=== PATIENT | male | born 1995 | race Caucasian/White ===

== ENCOUNTER 2020-12-30 01:27 | Emergency (ER) | payer OTHER, SELFPAY ==
[2020-12-30] MEDS ORDERED: Lidocaine 1% (PF) 30 ML VIAL ONE ×3 (02:31→02:53)
[2020-12-30] MEDS ORDERED: Boostrix 0.5 ML (Tdap) VIAL ONE (02:53)
== END 2020-12-30 04:17 | disposition home or self-care (01) ==
LOC: ERS 01:27
DX: S41.112A Laceration without foreign body of left upper arm, initial encounter (principal); S39.012A Strain of muscle, fascia and tendon of lower back, initial encounter; F17.290 Nicotine dependence, other tobacco product, uncomplicated; V89.2XXA Person injured in unspecified motor-vehicle accident, traffic, initial encounter
CPT/HCPCS: 12001; 90471; 90715; J2001